=== PATIENT | female | born 1955 | race Caucasian/White ===

== ENCOUNTER 2024-05-30 12:15 | Outpatient (CLI) | payer MEDICARE, SELFPAY ==
[2024-05-30 13:09] LABS: Basophils # 0.1 K/mm3 (0-0.2); Basophils % 1.6 % (0.1-2.0); Eosinophils % 0.1 % (0.1-12.0); Hematocrit 44.5 % (37.0-47.0); Hemoglobin 14.9 g/dL (12.2-16.2); Lymphocytes # 1.5 K/mm3 (0.7-4.5); Lymphocytes % 18.3 % (10-50); Mean Corpuscular HGB Conc 33.5 g/dL (31.8-35.4); Mean Corpuscular Hemoglobin 28.8 pg (27.0-31.2); Mean Corpuscular Volume 85.9 fl (81-99); Mean Platelet Volume 7.2 fl (7.4-10.4); Monocytes # 0.5 K/mm3 (0.1-1.0); Monocytes % 5.8 % (1.7-9.3); Neutrophils % 74.2 % (37.0-80.0); Platelet Count 393 K/mm3 (142-424); Red Blood Count 5.17 M/mm3 (4.20-5.40); Red Cell Distribution Width 13.5 % (11.5-17.5); White Blood Count 8.1 K/mm3 (4.8-10.8)
[2024-05-30 13:25] LABS: Alanine Aminotransferase 28 U/L (12-78); Albumin Level 4.6 g/dl (3.5-5.0); Albumin/Globulin Ratio 1.7 (1.1-1.8); Alkaline Phosphatase 102 U/L (38-126); Anion Gap 14.4 mEq/L (5-15); Aspartate Amino Transferase 38 U/L (14-36); Bilirubin,Total 0.4 mg/dl (0.2-1.3); Blood Urea Nitrogen 16 mg/dl (7-17); Calcium 9.7 mg/dl (8.4-10.2); Carbon Dioxide 27 mmol/L (22.0-30.0); Chloride 104 mmol/L (98-107); Chol/HDL Ratio 5.3 (1-3.5); Cholesterol 223 mg/dl (140-200); Estimated Glomerular Filt Rate 99 ml/min (>60); GFR (African American) 120 ML/MIN (>60); Globulin 2.7 g/dL (1.3-3.2); Glucose 90 mg/dl (74-100); HDL Cholesterol 42 mg/dl (40-60); Potassium 4.4 mmoL/L (3.5-5.1); Sodium 141 mmol/L (136-145); Total Protein,Serum 7.3 g/dl (6.3-8.2); Triglycerides 213 mg/dl (30-150); VLDL Cholesterol 43 mg/dL (0-40)
[2024-05-30 13:36] LABS: Direct LDL Cholesterol 145.92 mg/dL (100-129)
[2024-05-30 13:41] LABS: 25-OH Vitamin D, Total 46.3 ng/mL (30-100)
[2024-05-30 13:56] LABS: Thyroid Stimulating Hormone 0.88 uIU/mL (0.465-4.68)
[2024-05-30 14:15] LABS: Vitamin B12 779 pg/mL (239-931)
[2024-06-01 12:29] LABS: Peripheral Smear Review Scanned Result
[2024-06-06 10:11] LABS: Antinuclear Antibodies (ANA) NEGATIVE
== END 2024-05-30 23:59 | disposition home or self-care (01) ==
LOC: LAB 12:24
PROVIDERS: PCP Nurse Practitioner Family; Visit Provider Nurse Practitioner Family
DX: D70.9 Neutropenia, unspecified (principal); I10 Essential (primary) hypertension; L65.9 Nonscarring hair loss, unspecified; E55.9 Vitamin D deficiency, unspecified; R79.89 Other specified abnormal findings of blood chemistry; Z13.220 Encounter for screening for lipoid disorders; Z13.29 Encounter for screening for other suspected endocrine disorder; Z83.49 Family history of other endocrine, nutritional and metabolic diseases
CPT/HCPCS: 36415; 80053; 80061; 82306; 82607; 83735; 84443; 85025; 86038

== ENCOUNTER 2025-06-03 09:29 | Outpatient (CLI) | payer MEDICARE, SELFPAY ==
--- OUTSIDE RECORDS SUMMARY | 2025-06-03 09:34 | XMS_ITS ---
Author Organization Unknown TREATMENT PLAN [facility] Start Date Provider Encounter for Check-up [phone] [facility]
--- NOTE | 2025-06-03 09:43 | ECG_ITS ---
APPROVED REPORT Exam: Resting ECG HR:66 bpm ECG Measurements Heart Rate 66 AXES PA 152 P 27 QRSd 104 QRS 13 QT 395 T 9 QTc 409 Conclusion SINUS RHYTHM NORMAL ECG UNCONFIRMED REPORT Electronically signed by : Abiodun Turner MD 06/04/2025 10:11:52
[2025-06-03 14:03] LABS: Hematocrit 42.8 % (37.0-47.0); Hemoglobin 13.7 g/dL (12.2-16.2); Mean Corpuscular HGB Conc 32.0 g/dL (31.8-35.4); Mean Corpuscular Hemoglobin 27.8 pg (27.0-31.2); Mean Corpuscular Volume 87.0 fl (81-99); Platelet Count 359 K/mm3 (142-424); Red Blood Count 4.92 M/mm3 (4.20-5.40); Red Cell Distribution Width-SD 41.6 fL; White Blood Count 5.9 K/mm3 (4.8-10.8)
[2025-06-03 14:04] LABS: Immature Granulocytes % 0.3 %; Nucleated Red Blood Cells % 0 %
[2025-06-03 14:35] LABS: Alanine Aminotransferase 18 U/L (12-78); Albumin Level 4.6 g/dl (3.5-5.0); Albumin/Globulin Ratio 1.7 (1.1-1.8); Alkaline Phosphatase 96 U/L (38-126); Anion Gap 12.6 mEq/L (5-15); Aspartate Amino Transferase 32 U/L (14-36); Bilirubin,Total 0.6 mg/dl (0.2-1.3); Blood Urea Nitrogen 14 mg/dl (7-17); Calcium 9.6 mg/dl (8.4-10.2); Carbon Dioxide 24 mmol/L (22.0-30.0); Chloride 102 mmol/L (98-107); Cholesterol 206 mg/dl (140-200); Creatinine,Serum 0.60 mg/dl (0.52-1.04); Estimated Glomerular Filt Rate 99 ml/min (>60); GFR (African American) 119 ML/MIN (>60); Globulin 2.7 g/dL (1.3-3.2); Glucose 84 mg/dl (74-100); HDL Cholesterol 38 mg/dl (40-60); Magnesium 2.1 mg/dl (1.6-2.3); Potassium 4.6 mmoL/L (3.5-5.1); Sodium 134 mmol/L (136-145); Total Protein,Serum 7.3 g/dl (6.3-8.2); Triglycerides 148 mg/dl (30-150)
[2025-06-03 14:52] LABS: 25-OH Vitamin D, Total 81.0 ng/mL (30-100)
[2025-06-03 15:04] LABS: Thyroid Stimulating Hormone < 0.02 uIU/mL (0.465-4.68)
[2025-06-03 15:22] LABS: Vitamin B12 > 1000 pg/mL (239-931)
[2025-06-04 14:23] LABS: Cortisol,AM 11.1 ug/dL (6.2-19.4)
[2025-06-06 06:11] LABS: Intrinsic Factor Abs, Serum 1.1 AU/mL (0.0-1.1)
== END 2025-06-03 23:59 | disposition home or self-care (01) ==
LOC: RT 09:29
PROVIDERS: PCP Nurse Practitioner Family; Visit Provider Nurse Practitioner Family
DX: E55.9 Vitamin D deficiency, unspecified (principal); I10 Essential (primary) hypertension; R79.89 Other specified abnormal findings of blood chemistry; R00.2 Palpitations
CPT/HCPCS: 80053; 80061; 82306; 82533; 82607; 83735; 84443; 85025; 86340; 93005

== ENCOUNTER 2025-06-26 09:45 | Outpatient (CLI) | payer MEDICARE, SELFPAY ==
[2025-06-26 16:18] LABS: Free T4 (Free Thyroxine) 0.97 ng/dl (0.78-2.19)
[2025-06-26 16:21] LABS: T4 (Thyroxine) 7.8 ug/dl (5.53-11.0)
[2025-06-26 16:35] LABS: Thyroid Stimulating Hormone 3.44 uIU/mL (0.465-4.68)
[2025-06-28 12:26] LABS: Triiodothyronine (T3) Free 3.3 pg/mL (2.0-4.4)
== END 2025-06-26 23:59 | disposition home or self-care (01) ==
LOC: LAB.DROPOF 20:14
PROVIDERS: PCP Nurse Practitioner Family; Visit Provider Nurse Practitioner Family
DX: R79.89 Other specified abnormal findings of blood chemistry (principal); I10 Essential (primary) hypertension
CPT/HCPCS: 84436; 84439; 84443; 84481; 86376; 86800

== ENCOUNTER 2025-07-10 09:40 | Outpatient (CLI) | payer MEDICARE, SELFPAY ==
--- NOTE | 2025-07-10 10:00 | US_ITS ---
FINAL REPORT TECHNIQUE: Sonographic images of the thyroid gland were obtained in the longitudinal and transverse planes. CLINICAL HISTORY: abnormal thyroid labs COMPARISON: None FINDINGS: The right lobe measures 2.3 x 5.5 x 1.8 cm. The right lobe is diffusely heterogeneous. There is a 7 mm hyperechoic TR 3 nodule, and isoechoic 7 mm TR 3 nodule, and a 7 mm hypoechoic TR 4 nodule. The left lobe measures 2.3 x 5.6 x 1.9 cm. The left lobe is diffusely heterogeneous. There is an upper pole hypoechoic 16 mm TR 3 nodule and a mixed cystic and solid 9 mm TR 3 nodule. The isthmus measures 3 mm. This is normal. IMPRESSION: Heterogeneous thyroid consistent with thyroiditis. Bilateral TR 3 nodules most measuring less than 1 cm in size. The 16 mm left thyroid nodule should be followed per TI-RADS criteria. Reviewed, Interpreted and Dictated by Amira Sam MD Transcribed by Lillian Abdi Authenticated and [facility]
== END 2025-07-10 23:59 | disposition home or self-care (01) ==
LOC: RAD 09:41
PROVIDERS: PCP Nurse Practitioner Family; Visit Provider Nurse Practitioner Family
DX: E07.89 Other specified disorders of thyroid (principal)
CPT/HCPCS: 76536